=== PATIENT | female | born 1955 ===

== ENCOUNTER 2017-03-04 06:08 | Observation (INO) | payer BC ==
[2017-03-04] VITALS (9 sets, daily range): BP systolic 155–178; BP diastolic 88–94; PULSE 79–98; RESP 14–21; TEMP 96.4–98; O2SAT 96–100
[~2017-03-04] VITALS: Ht 167.6 cm; Wt 80.3 kg
[2017-03-04] MEDS ORDERED: LACTATED RINGER'S 1000 ML INJ 1,000 ML ONE (06:39)
[2017-03-04] MEDS ORDERED: CLINDAMYCIN PHOS 900 MG/6 ML VIAL ONE (06:39)
[2017-03-04] MEDS ORDERED: SODIUM CHLORIDE 0.9% INJ 100 ML ONE (06:39)
[2017-03-04] MEDS ORDERED: BACITRACIN TOP OINT 15 GM TUBE ONE (06:42)
[2017-03-04] MEDS ORDERED: OXYMETAZOLINE HCL 0.05% 15 ML NASAL SPRAY ONE (06:42)
[2017-03-04] MEDS ORDERED: EPINEPHrine HCL (1:1000) 1 MG/ML VIAL ONE (06:42)
[2017-03-04] MEDS ORDERED: LIDOCAINE 1%/EPINEPHrine 1:100,000 SOLN 30 ML VIAL ONE (06:43)
[2017-03-04] MEDS ORDERED: fentaNYL CITRATE 250 MCG/5 ML AMP ONE (06:48)
[2017-03-04] MEDS ORDERED: BUPIVACAINE HCL PF 0.5% 30 ML VIAL ONE (06:51)
[2017-03-04] MEDS ORDERED: ACTO15TA11 PO (06:52)
[2017-03-04] MEDS ORDERED: CEPH500C PO (06:52)
[2017-03-04] MEDS ORDERED: MONT10TA4 PO (06:52)
[2017-03-04] MEDS ORDERED: FAMOTIDINE 20 MG/2 ML VIAL ONE (07:00)
[2017-03-04] MEDS ORDERED: MIDAZOLAM HCL 2 MG/2 ML VIAL ONE (07:00)
[2017-03-04] MEDS ORDERED: PROPOFOL 200 MG/20 ML AMP IV ONE (09:19)
[2017-03-04] MEDS: ONDANSETRON HCL 4 MG/2 ML VIAL IV PUSH PRN ×2 (12:33→19:36)
[2017-03-04] MEDS: ACETAMINOPHEN/HYDROcodone 325 MG/5 MG TAB PO PRN ×2 (12:34→21:44)
[2017-03-04] MEDS: CLINDAMYCIN 600 MG/NS 100 ML IV SCH ×4 (16:46→21:44)
[2017-03-04] MEDS: LACTATED RINGER'S 1000 ML INJ 1,000 ML IV SCH (16:46)
[2017-03-05] VITALS (8 sets, daily range): BP systolic 120–197; BP diastolic 66–99; PULSE 65–116; RESP 15–22; TEMP 97.7–100.8; O2SAT 95–99
[2017-03-05] MEDS: ONDANSETRON HCL 4 MG/2 ML VIAL IV PUSH PRN ×2 (00:16→07:36)
[2017-03-05] MEDS: LACTATED RINGER'S 1000 ML INJ 1,000 ML IV SCH ×3 (00:49→22:09)
[2017-03-05] MEDS: ACETAMINOPHEN/HYDROcodone 325 MG/5 MG TAB PO PRN (06:23)
[2017-03-05] MEDS: CLINDAMYCIN 600 MG/NS 100 ML IV SCH ×6 (06:23→21:30)
[2017-03-05] MEDS ORDERED: DEXTROSE 50% IN WATER 50 ML VIAL(D50) IV PRN (09:00)
[2017-03-05] MEDS ORDERED: GLUCAGON 1 MG/ML VIAL OTHER PRN (09:00)
[2017-03-05] MEDS ORDERED: ENALAPRILAT 1.25 MG/ML VIAL IV PUSH PRN (09:00)
[2017-03-05] MEDS: SODIUM CHLORIDE 0.65% NASAL SPRAY 45 ML BTL NASAL SCH ×3 (09:00→18:00)
[2017-03-05 10:52] LABS: AUTOMATED NEUTROPHIL # 7.8 TH/MM3 (1.8-7.7); BASOPHIL % 0.2 % (0.0-2.0); CHLORIDE 102 MEQ/L (98-107); HEMO FLAGS DIFF FINAL; LYMPH % 9.2 % (9.0-44.0); LYMPHOCYTE # 0.9 TH/MM3 (1.0-4.8); MEAN CELL VOLUME 90.5 FL (80.0-100.0); MEAN CORPUSCULAR HEMOGLOBIN 31.6 PG (27.0-34.0); MEAN CORPUSCULAR HGB CONC 34.9 % (32.0-36.0); MONO % 7.3 % (0.0-8.0); NEUT % 83.3 % (16.0-70.0); PLATELET COUNT 197 TH/MM3 (150-450); POTASSIUM 4.9 MEQ/L (3.5-5.1); RED BLOOD COUNT 4.09 MIL/MM3 (4.00-5.30); RED CELL DISTRIBUTION WIDTH 12.5 % (11.6-17.2); SODIUM (NA) 139 MEQ/L (136-145); WHITE BLOOD COUNT 9.4 TH/MM3 (4.0-11.0)
[2017-03-05 10:56] LABS: ANION GAP 9 MEQ/L (5-15); BICARBONATE 28.4 MEQ/L (21.0-32.0); BLOOD UREA NITROGEN 13 MG/DL (7-18)
[2017-03-05 10:59] LABS: ALT (GPT) 16 U/L (10-53); AST (GOT) 11 U/L (15-37); GLOMERULAR FILTRATION RATE 70 ML/MIN (>89)
[2017-03-05] MEDS: INSULIN ASPART SUPPLEMENTAL SCALE SQ SCH ×3 (11:00→22:08)
[2017-03-05 11:02] LABS: ALKALINE PHOSPHATASE 82 U/L (45-117)
[2017-03-05] MEDS ORDERED: ACETAMINOPHEN 325 MG TAB PO PRN (15:15)
--- NOTE | 2017-03-05 15:29 | PD.CONS ---
HPI [facility] Consult Requested By Primary Care Physician Non-Staff Diagnoses: History of Present Illness 61-year-old female with a history of diabetes, allergies, who had a ground- level fall on Tuesday, tripping over her dog's leash, hitting her face and left chest on the pavement. She denies any loss of consciousness or lightheadedness. She underwent maxillofacial surgery yesterday. Patient reports nausea, nonbloody vomiting since admission secondary to narcotic pain medications, and also reports decreased appetite secondary to nausea. Her last her chronic pain medication was 6 AM this morning, and she has felt better this afternoon, was able to walk around without issues. She has a long history of nausea and vomiting with any narcotic pain medications in the past. Patient reports feeling fine prior to fall on Tuesday. She frontal face pain, however denies any cranial pain. Review of Systems Performed and negative except for history of present illness and past medical history. Past Family Social History Allergies: Coded Allergies: Cipro (Verified Allergy, Severe, Rash, 03/04/17) Ephedrine (Verified Allergy, Severe, Tachycardia, 03/04/17) Peanut (Verified Allergy, Severe, Anaphylaxis, 03/04/17) Penicillin (Verified Allergy, Severe, Rash, 03/04/17) Potato (Verified Allergy, Severe, Anaphylaxis, 03/04/17) Sulfa (Verified Allergy, Severe, Anaphylaxis, 03/04/17) Tomato (Verified Allergy, Severe, Anaphylaxis, 03/04/17) Codeine (Verified Adverse Reaction, Severe, Nausea/Vomiting, 03/04/17) Latex (Verified Adverse Reaction, Severe, Swelling, 03/04/17) Uncoded Allergies: KRISTEN FAMILY (Adverse Reaction, Severe, Tachycardia, 03/04/17) Past Medical History //Diabetes mellitus //Hypertension. Previously on blood pressure meds, however //discontinued. //History of possible TIA in the past. Patient was suspected to have atrial fibrillation, and has had a implanted loop monitor for the past 2 years, with no atrial fibrillation detected. Past Surgical History Appendectomy Laparoscopic cholecystectomy Partial colectomy Reported Medications Reviewed in the electronic medical record, and confirmed with the patient Family History Family history reviewed with the patient and found to be currently noncontributory. Social History Nonsmoker. Nondrinker. Denies illicit drugs. Physical Exam Vital Signs Vital Signs Date Time Temp Pulse Resp B/P Pulse Ox O2 Delivery O2 Flow Rate FiO2 03/05/17 12:22 99.8 65 15 136/71 98 03/05/17 09:18 98.7 82 18 120/66 97 03/05/17 08:13 96 21 03/05/17 08:13 96 21 03/05/17 07:23 20 03/05/17 04:15 97.7 116 22 197/99 97 03/05/17 00:32 97.7 116 22 197/99 97 03/04/17 21:06 97.3 87 14 165/88 97 03/04/17 20:00 96 Room Air 21 03/04/17 20:00 96 21 03/04/17 16:00 96.4 98 21 155/90 97 Physical Exam GENERAL: This is a well-nourished, well-developed patient, in no apparent distress. Learn oriented 3. SKIN: No rashes, ecchymoses or lesions. Cool and dry. Some bruising, with ecchymosis left lower chest. No crepitus. Broken skin. HEAD: Paranasal ecchymosis. Dressings intact. EYES: Pupils equal round and reactive. Extraocular motions intact. No scleral icterus. No injection or drainage. ENT: Nose without bleeding, purulent drainage or septal hematoma. Throat without erythema, tonsillar hypertrophy or exudate. Uvula midline. Airway patent. NECK: Trachea midline. No JVD or lymphadenopathy. Supple, nontender, no meningeal signs. CARDIOVASCULAR: Regular rate and rhythm without murmurs, gallops, or rubs. RESPIRATORY: Clear to auscultation. Breath sounds equal bilaterally. No wheezes , rales, or rhonchi. GASTROINTESTINAL: Abdomen soft, non-tender, nondistended. No hepato-splenomegaly , or palpable masses. No guarding. MUSCULOSKELETAL: Extremities without clubbing, cyanosis, or edema. No joint tenderness, effusion, or edema noted. No calf tenderness. Negative Homans sign bilaterally. NEUROLOGICAL: Awake and alert. Cranial nerves II through XII intact. Motor and sensory grossly within normal limits. Five out of 5 muscle strength in all muscle groups. Normal speech. Laboratory Laboratory Tests Test 03/05/17 10:30 White Blood Count 9.4 Red Blood Count 4.09 Hemoglobin 12.9 Hematocrit 37.0 Mean Corpuscular Volume 90.5 Mean Corpuscular Hemoglobin 31.6 Mean Corpuscular Hemoglobin 34.9 Concent Red Cell Distribution Width 12.5 Platelet Count 197 Mean Platelet Volume 7.2 Neutrophils (%) (Auto) 83.3 Lymphocytes (%) (Auto) 9.2 Monocytes (%) (Auto) 7.3 Eosinophils (%) (Auto) 0.0 Basophils (%) (Auto) 0.2 Neutrophils # (Auto) 7.8 Lymphocytes # (Auto) 0.9 Monocytes # (Auto) 0.7 Eosinophils # (Auto) 0.0 Basophils # (Auto) 0.0 CBC Comment DIFF FINAL Differential Comment Sodium Level 139 Potassium Level 4.9 Chloride Level 102 Carbon Dioxide Level 28.4 Anion Gap 9 Blood Urea Nitrogen 13 Creatinine 0.83 Estimat Glomerular Filtration 70 Rate Random Glucose 199 Calcium Level 8.9 Total Bilirubin 1.0 Aspartate Amino Transf 11 (AST/SGOT) Alanine Aminotransferase 16 (ALT/SGPT) Alkaline Phosphatase 82 Total Protein 7.5 Albumin 3.5 Result Diagram: 03/05/17 1030 03/05/17 1030 Assessment and Plan Assessment and Plan //Nausea and vomiting. Secondary to narcotics. Have advised patient to avoid any narcotic pain meds. Antiemetics as necessary. She will take Tylenol as necessary. //Diabetes mellitus. With hyperglycemia. Blood sugar 199 Diabetic diet and insulin sliding scale. Monitor blood sugars. Can resume home by mouth meds at discharge. //History of hypertension. Blood pressure significant only elevated up to 190s systolic overnight. Possibly sleep-disordered breathing. Vital signs appear to be improved this morning. Have ordered enalapril IV as necessary. Continue to monitor //Prophylaxis. As per surgical service. Discussed Condition With Patient, nurse. Wesley Amato MD Mar 05, 2017 15:29
[2017-03-05] MEDS ORDERED: ACETAMINOPHEN/HYDROcodone 325 MG/5 MG TAB PO PRN (15:45)
[2017-03-06 00:21] VITALS: BP 162/83; PULSE 98; RESP 14; TEMP 100; O2SAT 97
[2017-03-06] MEDS: CLINDAMYCIN 600 MG/NS 100 ML IV SCH ×2 (07:28)
[2017-03-06 07:30] VITALS: O2SAT 95
[2017-03-06] MEDS: SODIUM CHLORIDE 0.65% NASAL SPRAY 45 ML BTL NASAL SCH (07:38)
[2017-03-06 07:54] LABS: BLOOD, URINE LARGE (NEG); GLUCOSE,URINE NEG (NEG); KETONE, URINE NEG (NEG); NITRITE,URINE NEG (NEG)
[2017-03-06 08:00] VITALS: BP 151/79; PULSE 89; RESP 20; TEMP 98.6; O2SAT 96
[2017-03-06 08:02] LABS: METHOD OF COLLECTION CLEAN CATCH; URINE COLOR YELLOW (YELLW/STRAW)
[2017-03-06 08:03] LABS: COMMENT (UR) CULT NOT INDICATED; CULTURE IF INDICATED CULT NOT INDICATED; SQUAMOUS EPITHELIAL CELL URINE 0-5 /hpf (0-5); WBC, URINE 0-2 /hpf (0-5)
[2017-03-06 08:04] LABS: COMMENT2 (UR) MUCOUS PRESENT
--- NOTE | 2017-03-06 10:15 | EKG ---
Date Performed: 03/04/2017 Time Performed: 07:00:08 PTAGE: 61 years EKG: Sinus rhythm . Poor R wave progression - probable normal variant Low QRS voltages in precordial leads Borderline E CG NO PREVIOUS TRACING DOCTOR: Nasim Rinaldi Interpretating Date/Time 03/06/2017 09:56:08
--- NOTE | 2017-03-08 22:28 | MP ---
cc: ANNA MARIE KEMP MD DATE OF SURGERY March 04, [address] Arcelia Kemp PREOPERATIVE DIAGNOSIS 1. Closed nasal fracture. 2. Nasal septal fracture. 3. Nasal septal hematoma 4. Nasal airway obstruction. POSTOPERATIVE DIAGNOSIS 1. Closed nasal fracture. 2. Nasal septal fracture. 3. Nasal septal hematoma 4. Nasal airway obstruction. OPERATION PERFORMED 1. Open repair nasal septal fracture with drainage of hematoma 2. Closed reduction nasal fracture. 3. Bilateral submucosal resection of inferior turbinates INDICATIONS Documented in the history and physical. DESCRIPTION OF OPERATION The patient was taken to OR #2 and placed in the supine position. Following induction of general anesthesia and intubation, the nose was packed bilaterally with cotton pledgets saturated in 0.05% Oxymetazoline. The nasal septum was injected with a total of 6 mL of 1% Xylocaine with epinephrine 1:100,000. Packing remained in place for around 3 minutes. She was prepped and draped for surgery. The packing was removed and the nasal fracture reduction was begun. Manual pressure was applied to the nasal bones bilaterally pushing them to the midline and then using a Newton elevator inserted into the anterior nasal vault nasal bones were brought forward into the midline and reducing a dorsal hump. The septum was then addressed. A Stella incision was made in the left nasal vestibule. Through this incision, the mucosa of septum was elevated approximately 1 cm before the fracture line of the anterior quadrangular cartilage was encountered. Hematoma was investing the submucosal space throughout this areas. This was evacuated with suction and irrigation. The septal cartilage posterior to the line of fracture was then removed preserving a 1.5 cm dorsal cartilaginous strut. The total area of around 2 x 2 cm was removed. When this was completed, the mucosa was elevated from the bony septum. This was removed moving posteriorly as far as the rostrum of the sphenoid. The anterior quadrangular cartilage then was addressed. This was drawn anteriorly and pulling it back into the midline. It was sewn into the soft tissue investing the anterior nasal spine using a single suture of 4-0 Vicryl. The incision was then closed with a running lock suture of 4-0 chromic and the mucosal layers of septum were approximated to each other with a quilting stitch of 4-0 plain gut. Inferior turbinates were addressed next. They were fractured out medially and stab incisions were opened along their inferior surfaces. Through these incisions, the submucosal soft tissue was reduced using a curette and preserving the conchal bone. The incisions were then cauterized using a suction Bovie at 35 garcía. The remnants of the inferior turbinates were then relateralized to the lateral nasal wall. The nose was then packed bilaterally with 5.5 cm rapid rhino balloons which were inflated with 5 mL of air on each side. A [place] splint was attached to the nasal dorsum and the procedure was terminated. The patient was reversed from anesthesia and taken to recovery in good condition. There were no complications. Blood loss was 80 mL. MD STEFANIE Kenney/ /8:07 AM /10:24 PM
--- NOTE | 2017-03-09 11:20 | MD ---
cc: ANNA MARIE VILLELA M.D. ADMISSION DATE: 03/04/2017 DISCHARGE DATE: 03/06/2017 ADMITTING DIAGNOSIS Nasal fracture. DISCHARGE DIAGNOSIS 1. Nasal fracture. 2. Chronic nausea and vomiting. HOSPITAL COURSE Sandra Glass is an otherwise healthy 61-year-old woman who was admitted for repair of closed nasal fracture and nasal septal fracture which had occurred approximately one week prior to the date of admission. The procedure was completed in a routine manner. It was anticipated that she would be discharged on the same day, however, postoperatively she complained of nausea and vomiting, and she was then admitted for 23-hour observation. On the morning following surgery she was still vomiting and she states she had been vomiting for three or four days prior to her surgery. She was maintained on IV fluids and clear liquids. A Medicine consult was obtained and reported that she was likely having a reaction to narcotics. The narcotic medicine was discontinued and her nausea resolved. On the second morning in the hospital she was discharged in good condition on a clear liquid diet without any narcotic medications. She is to follow-up in two weeks for debridement of her nasal vault. MD STEFANIE Kenney/JORDYN /8:12 AM /11:19 AM
== END 2017-03-06 09:29 | disposition home or self-care (01) ==
LOC: PHSDC 06:08 → PHEDA 09:55 → PH3B 09:56
PROVIDERS: ADMIT Otolaryngology; ATTEND Otolaryngology
DX: S02.2XXA Fracture of nasal bones, initial encounter for closed fracture (principal); J98.8 Other specified respiratory disorders; R11.2 Nausea with vomiting, unspecified; E11.65 Type 2 diabetes mellitus with hyperglycemia; I10 Essential (primary) hypertension; Z91.018 Allergy to other foods; Z88.8 Allergy status to other drugs, medicaments and biological substances; W01.0XXA Fall on same level from slipping, tripping and stumbling without subsequent striking against object, initial encounter; Z88.2 Allergy status to sulfonamides; Z88.0 Allergy status to penicillin; Z91.010 Allergy to peanuts; Z88.5 Allergy status to narcotic agent; Z91.040 Latex allergy status; Z88.1 Allergy status to other antibiotic agents
CPT/HCPCS: 00160; 21315; 21336; 30140; 80053; 81001; 82948; 85025; 93005; 94664; 94762; G0378; J1815; J2250; J2405; J3010; J7120; J0171